=== PATIENT | female | born 1940 | race Caucasian/White ===

== ENCOUNTER 2016-07-23 09:58 | Outpatient (CLI) | payer OTHER ==
--- NOTE | 2016-07-23 10:44 | DIAGNOSTIC IMAGING REPORT ---
PROCEDURE: DEXA BONE DENSITY STUDY CLINICAL INDICATION: SCREENING COMPARISON: None. FINDINGS: LUMBAR SPINE: Bone mineral density 0.956, T-score -0.8, normal. LEFT HIP: Bone mineral density 0.747, T-score -1.6, osteopenia. LEFT FEMORAL NECK: Bone mineral density 0.485, T-score -3.3, osteoporosis (T score greater or equal to -1.0 to: NORMAL) (T score from -1.1 to -2.4: OSTEOPENIA) (T score ess than or equal to -2.5: OSTEOPOROSIS) IMPRESSION: 1. Normal lumbar spine bone mineral density 2. Left hip osteoporosis
== END 2016-07-23 23:00 | disposition home or self-care (01) ==
LOC: XR SRH 09:58
DX: M81.8 Other osteoporosis without current pathological fracture (principal)